=== PATIENT | female | born 1965 | race African-American/Black ===

== ENCOUNTER 2020-11-10 17:48 | Emergency (ER) | payer OTHER ==
[~2020-11-10] VITALS: Ht 152.4 cm; Wt 72.7 kg
[2020-11-10] MEDS ORDERED: PERCOCET 5MG/325MG TAB PO ONE (22:15)
--- NOTE | 2020-11-10 22:42 | REPVR ---
PROCEDURE INFORMATION: Exam: XR Left Ribs with PA Chest Exam date and time: 11/10/2020 9:57 PM Age: 55 years old Clinical indication: Chest wall pain; Left; Additional info: Left lateral chest wall; Fall TECHNIQUE: Imaging protocol: XR Left ribs with PA chest. Views: 3 views COMPARISON: No relevant prior studies available. FINDINGS: Lungs: Mild pulmonary hyperinflation with increased lucency of lung, particularly in the upper lobes. No focal infiltrates. Pleural spaces: Unremarkable. No pleural effusion. No pneumothorax. Heart/Mediastinum: Unremarkable. No cardiomegaly. Bones/joints: Residua of left rib fractures are noted involving the 1st-5th ribs laterally and the left 7th rib posteriorly. IMPRESSION: 1. Suggestion of some degree of COPD with probable bullous change. 2. Residua of left rib fractures involving the 1st-5th and 7th ribs of uncertain age. 3. Otherwise negative chest. Electronically signed by: Sg Montanez On 11/10/2020 22:41:26 PM
[2020-11-10] MEDS ORDERED: LIDO5DIS41 TOP (23:27)
[2020-11-10] MEDS ORDERED: OXYCODONE/APAP 5MG/325MG(BULK FOR ED) 1 TABLET PO ONE (23:35)
[2020-11-10 23:45] VITALS: BP 151/69
== END 2020-11-10 23:45 | disposition home or self-care (01) ==
LOC: M ED 17:48
DX: S20.212A Contusion of left front wall of thorax, initial encounter (principal); V00.831A Fall from motorized mobility scooter, initial encounter; Y92.099 Unspecified place in other non-institutional residence as the place of occurrence of the external cause; Y93.9 Activity, unspecified; Y99.9 Unspecified external cause status; I10 Essential (primary) hypertension

== ENCOUNTER 2020-12-23 12:49 | Emergency (ER) | payer OTHER ==
[~2020-12-23] VITALS: Ht 152.4 cm; Wt 59.8 kg
[~2020-12-23 12:49] MED LIST: LIDO5DIS41 TOP
[2020-12-23] MEDS ORDERED: LABETALOL 100MG/20ML VIAL IV STA ×2 (13:09→13:46)
[2020-12-23] MEDS ORDERED: METOPROLOL TART 50 MG TAB PO ONE (13:10)
[2020-12-23] MEDS ORDERED: ASPIRIN 81 MG CHEW TABLET PO ONE (13:10)
[2020-12-23 13:19] VITALS: BP 176/111
[2020-12-23 13:35] LABS: BASO % 0.5 % (0.0-1.0); EOS # 0.1 10^3/uL (0.0-0.5); EOS % 1.7 % (0.0-3.0); HEMATOCRIT 43.5 % (36.0-47.0); HEMOGLOBIN 14.6 g/dl (12.0-15.5); LYMPH # 2.6 10^3/uL (1.5-5.0); LYMPH % 39.2 % (24.0-44.0); MEAN CORPUSCULAR HEMOGLOBIN 29.9 pg (27.0-33.0); MEAN CORPUSCULAR HGB CONC 33.6 g/dl (32.0-36.5); MONO # 0.4 10^3/uL (0.0-0.8); MONO % 5.3 % (2.0-8.0); NEUTROPHILS # 3.5 10^3/uL (1.5-8.5); NEUTROPHILS % 53.1 % (36.0-66.0); PLATELET COUNT, AUTOMATED 314 10^3/uL (150-450); RED BLOOD COUNT 4.89 10^6/uL (4.00-5.40); WHITE BLOOD COUNT 6.6 10^3/uL (4.0-10.0)
[2020-12-23 14:01] LABS: ALBUMIN 4.1 GM/DL (3.2-5.2); ALT/SGPT 25 U/L (12-78); BILIRUBIN,DIRECT 0.1 MG/DL (0.0-0.2); BILIRUBIN,TOTAL 0.3 MG/DL (0.2-1.0); BLOOD UREA NITROGEN 10 MG/DL (7-18); CALCIUM LEVEL 8.9 MG/DL (8.5-10.1); CARBON DIOXIDE LEVEL 27 MEQ/L (21-32); CHLORIDE LEVEL 109 MEQ/L (98-107); CK-MB VALUE MASS < 1.0 NG/ML (<3.6); CPK CREATINE PHOSPHOKINASE 104 U/L (26-192); CREATININE FOR GFR 0.61 MG/DL (0.55-1.30); GLOMERULAR FILTRATION RATE > 60.0 (>51); GLUCOSE, FASTING 86 MG/DL (70-100); MB/CK RELATIVE INDEX 0.96 (< OR =4); POTASSIUM SERUM 3.9 MEQ/L (3.5-5.1); SODIUM LEVEL 143 MEQ/L (136-145); TOTAL PROTEIN 8.4 GM/DL (6.4-8.2); TROPONIN I < 0.02 NG/ML (< 0.10)
[2020-12-23 14:02] LABS: INR 1.05; PROTHROMBIN TIME 14.1 SECONDS (12.7-14.5)
[2020-12-23] MEDS ORDERED: METO1TAB7 PO (14:08)
[2020-12-23] MEDS ORDERED: HYDR12.55 PO (14:08)
[2020-12-23 14:30] VITALS: BP 149/93
--- NOTE | 2020-12-23 19:10 | ECGEPIP ---
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
== END 2020-12-23 14:56 | disposition home or self-care (01) ==
LOC: M ED 12:49
DX: I10 Essential (primary) hypertension (principal); Z91.14 Patient's other noncompliance with medication regimen; F17.200 Nicotine dependence, unspecified, uncomplicated

== ENCOUNTER 2021-05-05 03:09 | Emergency (ER) | payer OTHER ==
[~2021-05-05] VITALS: Ht 152.4 cm; Wt 65.8 kg
[2021-05-05 03:09] VITALS: BP 132/85
[~2021-05-05 03:09] MED LIST changes: +HYDR12.55 PO; +METO1TAB7 PO
== END 2021-05-05 03:23 | disposition left against medical advice (07) ==
LOC: M ED 03:09
DX: Z53.21 Procedure and treatment not carried out due to patient leaving prior to being seen by health care provider (principal)